=== PATIENT | female | born 1930 | race Caucasian/White ===

== ENCOUNTER → 2019-02-06 | Outpatient (REF) ==
[2019-02-06 11:43] LABS: ALBUMIN 2.8 GM/DL (3.2-5.2); CALCIUM LEVEL 8.2 MG/DL (8.8-10.2)
== END ==
LOC: M LAB LCGH 11:16
PROVIDERS: ATTEND Family Medicine
DX: Z00.00 Encounter for general adult medical examination without abnormal findings (principal)